=== PATIENT | female | born 1990 | race Two or more races ===

== ENCOUNTER 2018-12-18 09:49 | Emergency (ER) | payer MEDICAID, OTHER ==
[~2018-12-18] VITALS: Ht 152.4 cm; Wt 61.2 kg
[2018-12-18] MEDS ORDERED: LIDOCAINE 1% (LOCAL ANESTH.) PF 5ml SDV ID ONE (11:00)
[2018-12-18] MEDS ORDERED: LIDOCAINE 1% HCL (LOCAL ANESTH.) INJ 20ML MDV IJ ONE (11:15)
[2018-12-18 11:18] VITALS: BP 110/70
[2018-12-18] MEDS ORDERED: ACETAMINOPHEN 325 MG TAB PO ONE (11:30)
== END 2018-12-18 11:59 | disposition home or self-care (01) ==
LOC: ER 09:49
DX: N75.1 Abscess of Bartholin's gland (principal); F17.210 Nicotine dependence, cigarettes, uncomplicated
CPT/HCPCS: 56420

== ENCOUNTER 2018-12-20 15:26 | Emergency (ER) | payer OTHER ==
[~2018-12-20] VITALS: Ht 152.4 cm; Wt 61.2 kg
[2018-12-20 15:30] VITALS: BP 95/51
== END 2018-12-20 17:40 | disposition home or self-care (01) ==
LOC: ER 15:32
DX: N76.4 Abscess of vulva (principal)

== ENCOUNTER 2018-12-22 09:52 | Emergency (ER) | payer OTHER ==
[~2018-12-22] VITALS: Ht 152.4 cm; Wt 61.2 kg
[2018-12-22 10:52] VITALS: BP 116/63
== END 2018-12-22 11:20 | disposition home or self-care (01) ==
LOC: ER 09:52
DX: N75.1 Abscess of Bartholin's gland (principal)